=== PATIENT | female | born 1995 | race Caucasian/White ===

== ENCOUNTER 2018-10-31 17:01 | Emergency (ER) | payer BC ==
--- NOTE | 2018-10-31 17:27 | UC ---
Headache HPI - HPI Summary HPI Summary: 22-year-old female presents with complaints of headache and nausea. States she accidentally hit her head on 10/28/2018 on her bathroom cabinet door. No LOC. States she woke up the next day with a mild headache and some nausea. Took ibuprofen without relief in her headache. Yesterday she states the headache became very severe and the nausea worsened. She was evaluated at [facility] and it was recommended that she go to the emergency room for further evaluation however she chose not to do this. She presents today stating that her headache is slightly better today than yesterday. Describes the headache as tight and wraps around her head. Today noted that it is radiating into her and posterior neck as well. She continues to have nausea. States she is noted some difficulty concentrating since hitting her head. Denies fever, chills, URI symptoms, visual disturbances, dizziness, speech difficulties, memory loss, numbness, tingling, or weakness of extremities. - History Of Current Complaint Chief Complaint: UCHeadInjury Stated Complaint: HEAD INJURY Time Seen by Provider: 10/31/18 17:24 Hx Obtained From: Patient Pain Intensity: 4 - Allergies/Home Medications Allergies/Adverse Reactions: Allergies Allergy/AdvReac Type Severity Reaction Status Date / Time No Known Allergies Allergy Verified 10/31/18 17:13 Home Medications: Home Medications DOXYcycline CAP(*) [DOXYcycline 100MG CAP(*)] 100 mg PO DAILY 10/31/18 [History Confirmed 10/31/18] Ethynodiol D-Ethinyl Estradiol [Zovia 1/50E] 1 tab PO 10/31/18 [History] Ibuprofen 400 mg PO 10/31/18 [History] Sulfamethoxazole/Trimethoprim [Sulfamethoxazole-Tmp Ds Tablet] 1 each PO [History] PMH/Surg Hx/FS Hx/Imm Hx - Additional Past Medical History Additional PMH: Chronic Lyme Disease Previously Healthy: Yes GI/ History: Other - Endometriosis - Surgical History Surgical History: Yes Surgery Procedure, Year, and Place: t&a, wisdom teeth - Family History Known Family History: Positive: Other - Tension Headache - mother - Social History Occupation: Employed Full-time Lives: With Family Alcohol Use: Rare Substance Use Type: None Smoking Status (MU): Never Smoked Tobacco Review of Systems All Other Systems Reviewed And Are Negative: Yes Constitutional: Negative: Fever, Chills Skin: Negative: Rash Eyes: Negative: Blurred Vision, Diplopia, Drainage, Eye Redness, Photophobia ENT: Negative: Sore Throat, Ear Ache, Nasal Discharge, Sinus Congestion, Sinus Pain/Tenderness Respiratory: Negative: Shortness Of Breath, Cough Cardiovascular: Negative: Palpitations, Chest Pain Gastrointestinal: Positive: Nausea. Negative: Abdominal Pain, Vomiting, Diarrhea Genitourinary: Positive: Negative Musculoskeletal: Positive: Negative Neurological: Positive: Headache. Negative: Weakness, Paresthesia, Numbness Is Patient Immunocompromised?: No Physical Exam - Summary Physical Exam Summary: GENERAL APPEARANCE: Well developed, well nourished, alert and cooperative, and appears to be in no acute distress. HEAD: Atraumatic. Normocephalic. EYES: Conjunctiva clear. No drainage. PERRL, EOM intact. Vision is grossly intact. EARS: External auditory canals and tympanic membranes clear, hearing grossly intact. NOSE: No nasal discharge. THROAT: Pharynx normal. Tonsils surgically absent. Uvula midline. Oral cavity normal. Teeth and gingiva in good general condition. NECK: Neck supple, non-tender without lymphadenopathy. No nuchal rigidity. CARDIAC: Normal S1 and S2. No S3, S4 or murmurs. Rhythm is regular. There is no peripheral edema, cyanosis or pallor. Extremities are warm and well perfused. Capillary refill is less than 2 seconds. Peripheral pulses intact. LUNGS: Clear to auscultation without rales, rhonchi, wheezing or diminished breath sounds. ABDOMEN: Positive bowel sounds. Soft, nondistended, nontender. No guarding or rebound. No masses or hepatosplenomegally. MUSKULOSKELETAL: ROM intact to all extremities. No joint erythema or tenderness. Normal muscular development. Normal gait. NEUROLOGICAL: CN II-XII intact. Strength and sensation symmetric and intact throughout. Reflexes 2+ throughout. Cerebellar testing normal. SKIN: Skin normal color, texture and turgor with no lesions or eruptions. Triage Information Reviewed: Yes Vital Signs: Initial Vital Signs Temp 99.0 F 10/31/18 17:09 Pulse 87 10/31/18 17:09 Resp 18 10/31/18 17:09 BP 121/79 10/31/18 17:09 Pulse Ox 99 10/31/18 17:09 Vital Signs Reviewed: Yes Diagnostics - Radiology No standard instances Radiology Interpretation Completed By: Radiologist Summary of Radiographic Findings: EXAM: CT Head Without Contrast. EXAM DATE/ TIME: 10/31/2018 5:52 PM. CLINICAL HISTORY: 22 years old, female; Pain and injury or trauma; Fall; Initial encounter;. Concussion / head injury; Without loss of consciousness; Post-traumatic; Injury date: 10/28/2018; Injury details: Frontal headache after trauma hitting head on cabinet 3 days ago. Pain radiates into neck with some nausea that is getting better patient states; Additional info: Worsening BONE S/P head injury. TECHNIQUE: Imaging protocol: Axial computed tomography images of the head without. contrast. Radiation optimization: All CT scans at this facility use at least one of. these dose optimization techniques: automated exposure control; mA and/or kV. adjustment per patient size (includes targeted exams where dose is matched to clinical indication); or iterative reconstruction. COMPARISON: No relevant prior studies available. FINDINGS: Brain: Normal. No hemorrhage. Unremarkable white matter. No mass effect. Ventricles: Normal. No ventriculomegaly. Bones/joints : Unremarkable. No acute fracture. Sinuses: Visualized sinuses are unremarkable. No fluid levels. Mastoid air cells: Visualized mastoid air cells are well aerated. No mastoid. effusion. Soft tissues: Unremarkable. IMPRESSION: No acute intracranial abnormality. Headache Course/Dx - Course Course Of Treatment: 22-year-old female presents with complaints of headache and nausea. States she accidentally hit her head on 10/28/2018 on her bathroom cabinet door. No LOC. States she woke up the next day with a mild headache and some nausea. Took ibuprofen without relief in her headache. Yesterday she states the headache became very severe and the nausea worsened. She was evaluated at [facility] and it was recommended that she go to the emergency room for further evaluation however she chose not to do this. She presents today stating that her headache is slightly better today than yesterday. Describes the headache as tight and wraps around her head. Today noted that it is radiating into her and posterior neck as well. She continues to have nausea. States she is noted some difficulty concentrating since hitting her head. Denies fever, chills, URI symptoms, visual disturbances, dizziness, speech difficulties, memory loss, numbness, tingling, or weakness of extremities. Afebrile. Vital signs stable. Her overall exam was unremarkable and she was neurologically intact. A noncontrast CT of the brain was obtained and showed no acute pathology. Discussed results with the patient. We discussed that based on her description of the headache her symptoms are consistent with a tension type headache although I cannot fully exclude the possibility of a concussion. I am recommending conservative treatment with cerebral rest, continued use of acetaminophen or ibuprofen as needed for the headache, she already has a prescription for ondansetron and was encouraged to use as needed for nausea, and heat therapy. I have given her a referral to neurology to follow-up in 3-5 days if symptoms persist. Anticipatory guidance and warning symptoms were reviewed with the patient. She verbalizes understanding and agrees with plan of care. - Differential Dx/Diagnosis Differential Diagnosis/HQI/PQRI: Subdural Hematoma, Migraine, Sinus Headache, Subarachnoid Hemorrhage, Tension Headache, Other - Closed head injury Provider Diagnosis: Headache Discharge - Sign-Out/Discharge Documenting (check all that apply): Patient Departure All imaging exams completed and their final reports reviewed: No Studies - Discharge Plan Condition: Stable Disposition: HOME Patient Education Materials: Acute Headache (ED) Forms: *Work Release Referrals: Non Staff,Doctor [Primary Care Provider] - Ada Linn MD [Medical Doctor] - Additional Instructions: The CT scan of your head was normal. Based on your description of the headache it sounds like you are having a tension-type headache although I cannot fully rule out the possibility of a concussion since you do have a history of a head injury. Be sure to get plenty of rest. Try to avoid activities that require a lot of concentration. He should avoid all types of screens including television, computer, and cell phones. Continue to take acetaminophen (Tylenol) or ibuprofen (Advil, Motrin) according to directions as needed for your headache. You may use your ondansetron as directed for any nausea. Try applying warm moist heat to the back of your neck for 15-20 minutes at least 4 times a day to help relax the muscles. You may also want to consider some massage therapy. Follow up with the neurologist in 3-5 days if your symptoms persist. Call for an appointment. Seek immediate medical attention in the emergency room if you have worsening of her headache, one pupil is larger than the other, persistent dizziness, visual disturbances, confusion, use consciousness, difficulty speaking, weakness, numbness, or tingling of your extremities, persistent or projectile vomiting, or any worsening of symptoms. - Billing Disposition and Condition Condition: STABLE Disposition: Home
[2018-10-31] MEDS ORDERED: Acetaminophen TAB* 325 MG PO ONE (17:38)
[2018-10-31 17:57] VITALS: BP 121/79
== END 2018-10-31 19:00 | disposition home or self-care (01) ==
LOC: UCEAST 17:01
DX: R51 Headache (principal); R11.0 Nausea
CPT/HCPCS: 70450; 99211; A9270-GY; G0463

== ENCOUNTER → 2018-12-14 21:09 | Emergency (ER) | payer BC ==
[~2018-12-14 21:09] MED LIST: Metoclopramide TAB* 10 MG PO ONE; Promethazine TAB* 25 MG PO ONE
[2018-12-14 21:15] VITALS: BP 122/64
--- NOTE | 2018-12-14 21:32 | UC ---
UC General HPI - HPI Summary HPI Summary: Has had 5 or 6 episodes of emesis over the past 3 days, with 4 further episodes today. She also has had a sore throat, no fever. NO diarrhea or abdominal pain associated. No headache. Voiding well and vitals are stable. Has been on treatment for Lyme disease per physician in [place] for the past 5 months; does not believe that the vomiting is related to the use of antibiotics. - History of Current Complaint Chief Complaint: UCGI Stated Complaint: VOMITING Time Seen by Provider: 12/14/18 21:21 Hx Obtained From: Patient Hx Last Menstrual Period: OCTOBER 2018 Onset/Duration: Sudden Onset, Lasting Days - 3 Onset Severity: Moderate Current Severity: Moderate Pain Intensity: 0 Associated Signs & Symptoms: Positive: Nausea, Vomiting. Negative: Abdominal Pain, Melena - Allergy/Home Medications Allergies/Adverse Reactions: Allergies Allergy/AdvReac Type Severity Reaction Status Date / Time No Known Allergies Allergy Verified 12/14/18 21:15 Home Medications: Home Medications Biofilm Phase 2 Advanced* 12/14/18 [History] Citalopram TAB* [CeleXA TAB*] 20 mg PO DAILY 12/14/18 [History Confirmed ] Ethynodiol D-Ethinyl Estradiol [Kelnor ] 1 tab PO DAILY 12/14/18 [History Confirmed 12/14/18] Grapefruit Seed Extract* 12/14/18 [History] L.acidoph,Paracasei, B.lactis [Probiotic] 1 each PO 12/14/18 [History] Mc-Bar-2* 12/14/18 [History] Mc-Bb-2* 12/14/18 [History] PMH/Surg Hx/FS Hx/Imm Hx Previously Healthy: No - states Lyme disease Psychological History: Anxiety - Surgical History Surgical History: Yes Surgery Procedure, Year, and Place: t&a, wisdom teeth - Family History Known Family History: Positive: Other - Tension Headache - mother, Non- Contributory - Social History Occupation: Employed Full-time - soon moving back to [place]. Lives: Alone Alcohol Use: None Substance Use Type: None Smoking Status (MU): Never Smoked Tobacco Review of Systems All Other Systems Reviewed And Are Negative: Yes Constitutional: Positive: Fatigue ENT: Positive: Sore Throat. Negative: Ear Ache, Sinus Congestion Gastrointestinal: Positive: Vomiting, Nausea. Negative: Abdominal Pain, Diarrhea Genitourinary: Positive: Negative, Other - of endometriosus, controlled. Is Patient Immunocompromised?: No Physical Exam Triage Information Reviewed: Yes Appearance: No Pain Distress, Ill-Appearing - looks pale and mildly unwell. Hydrated. Vital Signs: Initial Vital Signs Temp 98 F 12/14/18 21:10 Pulse 86 12/14/18 21:10 Resp 16 12/14/18 21:10 BP 122/64 12/14/18 21:10 Pulse Ox 100 12/14/18 21:10 Eyes: Positive: Conjunctiva Clear ENT: Positive: Pharyngeal erythema Respiratory: Positive: Lungs clear, Normal breath sounds Cardiovascular: Positive: RRR, No Murmur Abdomen Description: Positive: Nontender, No Organomegaly, Soft. Negative: Guarding Diagnostics - Laboratory Lab Results: rapid strep negative. Course/Dx - Course Course Of Treatment: phenergan as antinauseant; omeprazole trial due to suspicion of gastritis. Symtpomatic treatment of pharyngitis. - Diagnoses Provider Diagnosis: Gastritis Discharge - Sign-Out/Discharge Documenting (check all that apply): Patient Departure All imaging exams completed and their final reports reviewed: No Studies - Discharge Plan Condition: Stable Disposition: HOME Prescriptions: Promethazine TAB* [Phenergan TAB*] 25 mg PO Q6H PRN #10 tab PRN Reason: Nausea Patient Education Materials: Gastritis (ED) Referrals: No Primary Care Phys,NOPCP [Primary Care Provider] - Additional Instructions: I suspect that vomiting is related to gastric upset related to retirement use of antibiotics. A prescription for phenergan for nause has been sent to your pharmacy. Use of over the counter omeprazole 20mg daily, taken about 20 minutes before a meal, is suggested to help your stomach. Try warm water and salt gargling to east the sore throat. Follow up if you have continued episodes of nausea and vomiting. - Billing Disposition and Condition Condition: STABLE Disposition: Home
== END | disposition home or self-care (01) ==
LOC: UCEAST 21:09
DX: K29.70 Gastritis, unspecified, without bleeding (principal); J02.9 Acute pharyngitis, unspecified; A69.20 Lyme disease, unspecified
CPT/HCPCS: 87651; 99212; A9270-GY; G0463